=== PATIENT | male | born 1955 | race Caucasian/White ===

== ENCOUNTER 2016-09-19 22:53 | Emergency (ER) | payer BC ==
[~2016-09-19] VITALS: Ht 177.8 cm; Wt 108.0 kg
[2016-09-19 23:59] LABS: HEMATOCRIT 42.3 % (38.0-50.0); MCH 31.1 PG (29.0-34.0); MCHC 33.1 G/DL (30.0-36.0); MEAN PLAT.VOLUME 8.9 uM^3 (9.0-12.4); PLATELET COUNT 312 K/uL (156-360); RBC DIS.WIDTH-CV 13.1 % (11.8-14.6); RBC DIS.WIDTH-SD 45.3 % (39-53); WHITE BLOOD COUNT 7.6 K/uL (4.1-10.2)
[2016-09-20 00:11] LABS: CHLORIDE 104 mEq/L (99-109); POTASSIUM 4.6 mEq/L (3.7-5.4); SODIUM 141 mEq/L (136-147)
[2016-09-20 00:13] LABS: GLUCOSE 90 mg/dL (70-99)
[2016-09-20 00:14] LABS: ANION GAP 10 MEQ/L (2-14)
[2016-09-20 00:17] LABS: GFR ESTIMATE (CALCULATED) > 59 mL/min/
[2016-09-20 00:18] LABS: UREA NITROGEN (BUN) 26 mg/dL (9-23)
[2016-09-20] MEDS ORDERED: BACTRIM,SEPT1 TABLET PO (01:10)
[2016-09-20 01:29] VITALS: BP 154/87
== END 2016-09-20 01:38 | disposition home or self-care (01) ==
LOC: EME 22:53
PROVIDERS: Physician Assistant
PROC: 0H9LXZZ Drainage of Left Lower Leg Skin, External Approach (ICD-10-PCS; principal; 2016-09-19)
DX: L02.416 Cutaneous abscess of left lower limb (principal); E78.5 Hyperlipidemia, unspecified; Z87.891 Personal history of nicotine dependence
CPT/HCPCS: 73590; 80048; 83605; 85027; 87040; 99281; 99284